=== PATIENT | female | born 1960 | race Caucasian/White ===

== ENCOUNTER 2024-01-15 05:15 | Emergency (ER) | payer MEDICARE ==
[2024-01-15 05:28] VITALS: PULSE 86
[2024-01-15] MEDS: Acetaminophen 500 MG Tab PO ONE (05:45)
[2024-01-15] MEDS: Ondansetron 4 MG Tab.DIS PO ONE (05:45)
[2024-01-15 06:01] VITALS: BP 127/75
[2024-01-15 06:44] LABS: CORONAVIRUS COVID-19 NAA NEGATIVE (NEGATIVE); INFLUENZA A NAA NEGATIVE (NEGATIVE); INFLUENZA B NAA NEGATIVE (NEGATIVE); RESPIRATORY SYNCYTIAL VIR NAA NEGATIVE (NEGATIVE)
== END 2024-01-15 07:10 | disposition home or self-care (01) ==
LOC: VM.ED 05:15
DX: R53.81 Other malaise (principal); E78.00 Pure hypercholesterolemia, unspecified; I10 Essential (primary) hypertension; E03.9 Hypothyroidism, unspecified; Z90.710 Acquired absence of both cervix and uterus; Z79.899 Other long term (current) drug therapy; Z88.2 Allergy status to sulfonamides; Z79.890 Hormone replacement therapy
CPT/HCPCS: 0241U; 99284; A9270-GY